=== PATIENT | female | born 1995 | race American Indian/Alaskan Native ===

== ENCOUNTER 2017-03-27 20:20 | Emergency (ER) | payer SELFPAY ==
[2017-03-27 21:00] VITALS: BP 115/66
[2017-03-27 21:25] LABS: Basophils % (Auto) 0.4 % (0.0-1.8); Eosinophils % (Auto) 0.4 % (0.0-4.3); Hematocrit 33.4 % (30.3-42.9); Hemoglobin 10.6 gm/dl (10.1-14.3); Mean Corpuscular HGB Conc 32 % (30-34); Mean Corpuscular Volume 79 fl (79-97); Platelet Count 232 K/mm3 (140-440); Red Blood Count 4.24 M/mm3 (3.65-5.03); Red Cell Distribution Width 15.8 % (13.2-15.2); White Blood Count 12.6 K/mm3 (4.5-11.0)
[2017-03-27 21:28] LABS: Mean Corpuscular Hemoglobin 25 pg (28-32)
[2017-03-27 22:03] LABS: Alanine Aminotransferase 7 units/L (7-56); Albumin 3.7 g/dL (3.9-5); Albumin/Globulin Ratio 1.3 %; Alkaline Phosphatase 44 units/L (35-129); Anion Gap 18 mmol/L; Blood Urea Nitrogen 7 mg/dL (7-17); Calcium 9.4 mg/dL (8.4-10.2); Carbon Dioxide 21 mmol/L (22-30); Chloride 104.5 mmol/L (98-107); Glucose 63 mg/dL (65-100); Lipase 39 units/L (13-60); Potassium 3.8 mmol/L (3.6-5.0); Sodium 140 mmol/L (137-145); Total Protein 6.5 g/dL (6.3-8.2)
--- NOTE | 2017-03-27 22:18 | Ultrasound Report ---
FINAL REPORT EXAM: US OB \T\gt; = 14 WEEKS FETUS HISTORY: Pelvic pain 18 weeks TECHNIQUE: Ultrasound obstetrical transabdominal PRIORS: None. FINDINGS: Single live intrauterine gestation identified. cardiac activity is present with heart rate of 149 beats per minute Amniotic fluid volume appears adequate. biometric measurements were obtained Biparietal diameter 19 weeks 2 days Head circumference 19 weeks 0 days Abdominal circumference 18 weeks 5 days Femur length 18 weeks 5 days Based on today's exam estimated gestational age is 19 weeks 0 days with estimated date of delivery August 21, 2017 Estimated weight today is 260 grams Cervical length is 3.7 centimeters Placenta is posterior and does not appear low lying IMPRESSION: Single live intrauterine gestation estimated at 19 weeks 0 days
--- NOTE | 2017-03-30 13:56 | ED Elopement Review ---
ED Pt Elopement review - Results review Lab results: Laboratory Tests 03/27/17 03/27/17 03/27/17 21:08 21:08 21:08 WBC 12.6 H RBC 4.24 Hgb 10.6 Hct 33.4 MCV 79 MCH 25 L MCHC 32 RDW 15.8 H Plt Count 232 Lymph % (Auto) 17.3 [place] % (Auto) 8.2 H Eos % (Auto) 0.4 Baso % (Auto) 0.4 Lymph # 2.2 [place]vier # 1.0 H Eos # 0.1 Baso # 0.0 Seg Neutrophils % 73.7 H Seg Neutrophils # 9.2 H Sodium 140 Potassium 3.8 Chloride 104.5 Carbon Dioxide 21 L Anion Gap 18 BUN 7 Creatinine 0.4 L Estimated GFR > 60 BUN/Creatinine Ratio 17.50 Glucose 63 L Calcium 9.4 Total Bilirubin 0.20 AST 15 ALT 7 Alkaline Phosphatase 44 Total Protein 6.5 Albumin 3.7 L Albumin/Globulin Ratio 1.3 Lipase 39 HCG, Quant 83678 H - Call Back decision Pt Call Back Decision: No action required
== END 2017-03-27 21:30 | disposition left against medical advice (07) ==
LOC: ED 20:20
DX: O26.892 Other specified pregnancy related conditions, second trimester (principal); R10.9 Unspecified abdominal pain; Z3A.18 18 weeks gestation of pregnancy; Z53.21 Procedure and treatment not carried out due to patient leaving prior to being seen by health care provider
CPT/HCPCS: 36415; 76805; 80053; 83690; 84702; 85025

== ENCOUNTER 2017-04-03 19:54 | Emergency (ER) | payer SELFPAY | END 2017-04-03 20:08 | disposition left against medical advice (07) | LOC: ED 19:54 | DX: O26.892 Other specified pregnancy related conditions, second trimester (principal); R10.9 Unspecified abdominal pain; Z3A.19 19 weeks gestation of pregnancy ==

== ENCOUNTER 2017-04-14 12:37 | Emergency (ER) | payer MEDICAID, OTHER ==
[2017-04-14 13:02] VITALS: BP 99/60
[2017-04-14 13:50] LABS: Basophils % (Auto) 0.4 % (0.0-1.8); Eosinophils % (Auto) 0.4 % (0.0-4.3); Hematocrit 34.4 % (30.3-42.9); Hemoglobin 10.8 gm/dl (10.1-14.3); Mean Corpuscular HGB Conc 32 % (30-34); Mean Corpuscular Volume 79 fl (79-97); Platelet Count 227 K/mm3 (140-440); Red Blood Count 4.37 M/mm3 (3.65-5.03); Red Cell Distribution Width 15.4 % (13.2-15.2); White Blood Count 15.7 K/mm3 (4.5-11.0)
[2017-04-14 13:58] LABS: Mean Corpuscular Hemoglobin 25 pg (28-32)
[2017-04-14 14:02] LABS: Anion Gap 15 mmol/L; Blood Urea Nitrogen 4 mg/dL (7-17); Calcium 9.3 mg/dL (8.4-10.2); Carbon Dioxide 22 mmol/L (22-30); Chloride 102.8 mmol/L (98-107); Glucose 76 mg/dL (65-100); Potassium 3.9 mmol/L (3.6-5.0); Sodium 136 mmol/L (137-145)
--- NOTE | 2017-04-15 10:38 | ED Elopement Review ---
ED Pt Elopement review - Results review Lab results: Laboratory Tests 04/14/17 04/14/17 04/14/17 13:20 13:20 15:16 WBC 15.7 H RBC 4.37 Hgb 10.8 Hct 34.4 MCV 79 MCH 25 L MCHC 32 RDW 15.4 H Plt Count 227 Lymph % (Auto) 11.5 L [place] % (Auto) 6.2 Eos % (Auto) 0.4 Baso % (Auto) 0.4 Lymph # 1.8 [place] # 1.0 H Eos # 0.1 Baso # 0.1 Seg Neutrophils % 81.5 H Seg Neutrophils # 12.8 H Sodium 136 L Potassium 3.9 Chloride 102.8 Carbon Dioxide 22 Anion Gap 15 BUN 4 L Creatinine 0.4 L Estimated GFR > 60 BUN/Creatinine Ratio 10.00 Glucose 76 Calcium 9.3 Troponin T < 0.010 < 0.010 - Call Back decision Pt Call Back Decision: Pt to F/U with PMD
== END 2017-04-14 16:11 | disposition left against medical advice (07) ==
LOC: ED 12:37
DX: R07.9 Chest pain, unspecified (principal); R42 Dizziness and giddiness; R10.9 Unspecified abdominal pain; Z53.21 Procedure and treatment not carried out due to patient leaving prior to being seen by health care provider
CPT/HCPCS: 36415; 80048; 84484; 85025; 93005; 93010

== ENCOUNTER 2017-05-04 00:33 | Outpatient (CLI) | payer MEDICAID ==
[2017-05-04 01:17] VITALS: BP 109/53
[2017-05-04] MEDS ORDERED: LACTATED RINGERS 1,000 ML IV ONE (01:28)
[2017-05-04 02:23] LABS: Bacteria,Urine 1+ /HPF (Negative); Bilirubin,Urine NEG (Negative); Blood,Urine NEG (Negative); Ketones,Urine NEG (Negative); Leukocyte Esterase,Urine LG (Negative); Mucus,Urine 1+ /HPF; Nitrite,Urine NEG (Negative); Protein,Urine <15 mg/dL mg/dL (Negative); Urobilinogen,Urine < 2.0 mg/dL (<2.0)
== END 2017-05-04 02:15 | disposition home or self-care (01) ==
LOC: TRG 00:33
PROVIDERS: ATTEND Obstetrics & Gynecology
DX: O47.02 False labor before 37 completed weeks of gestation, second trimester (principal); Z3A.24 24 weeks gestation of pregnancy
CPT/HCPCS: 81001

== ENCOUNTER 2018-10-25 | Emergency (ER) | payer MEDICAID ==
[2018-10-25 00:35] LABS: Bilirubin,Urine NEG (Negative); Blood,Urine NEG (Negative); Color,Urine Yellow (Yellow); Mucus,Urine FEW /HPF
[2018-10-25 00:36] LABS: HCG Qualitative,Urine Negative (Negative)
--- NOTE | 2018-10-25 00:49 | Emergency Department Report ---
ED Female HPI - General Chief complaint: Urogenital-Female Stated complaint: VAGINAL DISCOMFORT Time Seen by Provider: 10/25/18 00:40 Source: patient, family Mode of arrival: Ambulatory Limitations: No Limitations - History of Present Illness Initial comments: This is a 23-year-old female here report that she is having burning on urination, odor to urine, odor to the vaginal area started 3 days ago. She says she is clear to white discharge. Denies any itching. She does have concern for STD. Patient states she recently had an and she had complete STD check in August and everything was normal and then she started having sex again with her now boyfriend was in the room and this started happening. He does not have any symptoms at present. She reports some pelvic cramping at 7 out of 10 on and off. Pain is crampy located to milk pelvic area and no alleviating or exacerbating factors. She did not take any pain medication per patient. Denies any vaginal bleeding. Last menstrual period was 10/10/2018. Denies any back pain, nausea vomiting, fever or chills, shortness of breath or chest pain. MD Complaint: vaginal discharge, dysuria, pelvic pain, possible STD Onset/Timin -: days(s) Location: suprapubic Radiation: non-radiating Severity: severe Severity scale (0 -10): 7 Quality: cramping Consistency: intermittent Improves with: none Worsens with: none Are you Now?: No Last Menstrual Period: 10/10/18 EDC: 07/17/19 Associated Symptoms: vaginal discharge, abdominal pain, dysuria. denies: vaginal bleeding, nausea/vomiting, fever/chills, headaches, loss of appetite, hematuria, rash, seizure, shortness of breath, syncope, weakness - Related Data Sexually active: Yes Previous Rx's Medication Instructions Recorded Last Taken Type Naproxen [Naprosyn TAB] 500 mg PO BID #30 tablet 11/06/14 Unknown Rx cephALEXin [Keflex] 500 mg PO Q12H 7 Days #14 cap 10/25/18 Unknown Rx metroNIDAZOLE [Flagyl] 500 mg PO Q12HR 7 Days #14 tab 10/25/18 Unknown Rx Allergies Allergy/AdvReac Type Severity Reaction Status Date / Time No Known Allergies Allergy Verified 05/04/17 01:31 ED Review of Systems ROS: Stated complaint: VAGINAL DISCOMFORT Other details as noted in HPI Constitutional: denies: chills, fever Eyes: denies: eye pain, eye discharge ENT: denies: ear pain, throat pain, congestion Respiratory: denies: cough, shortness of breath, wheezing Cardiovascular: denies: chest pain, palpitations, dyspnea on exertion, edema, syncope Gastrointestinal: abdominal pain. denies: nausea, vomiting, diarrhea, constipation, hematemesis, hematochezia Genitourinary: dysuria, discharge. denies: urgency, frequency, hematuria, abnormal menses, dyspareunia Musculoskeletal: denies: back pain, joint swelling, arthralgia, myalgia Neurological: denies: headache Psychiatric: denies: anxiety ED Past Medical Hx - Past Medical History Previous Medical History?: No Hx Hypertension: No Hx Diabetes: No Hx Deep Vein Thrombosis: No Hx Renal Disease: No Hx Sickle Cell Disease: No Hx Seizures: No Hx Asthma: No Hx HIV: No - Surgical History Past Surgical History?: No - Family History Family history: hypertension - Social History Smoking Status: Never Smoker Substance Use Type: None - Medications Home Medications: Home Medications Medication Instructions Recorded Confirmed Last Taken Type Naproxen [Naprosyn TAB] 500 mg PO BID #30 tablet 11/06/14 Unknown Rx cephALEXin [Keflex] 500 mg PO Q12H 7 Days #14 cap 10/25/18 Unknown Rx metroNIDAZOLE [Flagyl] 500 mg PO Q12HR 7 Days #14 tab 10/25/18 Unknown Rx ED Physical Exam - General Limitations: No Limitations General appearance: alert, in no apparent distress - Head Head exam: Present: atraumatic, normocephalic, normal inspection - Eye Eye exam: Present: normal appearance, PERRL, EOMI Pupils: Present: normal accommodation - ENT ENT exam: Present: normal exam, normal orophraynx, mucous membranes moist, TM's normal bilaterally, normal external ear exam - Neck Neck exam: Present: normal inspection, full ROM, other (no C-spine tenderness). Absent: tenderness, meningismus, lymphadenopathy - Respiratory Respiratory exam: Present: normal lung sounds bilaterally. Absent: respiratory distress, chest wall tenderness - Cardiovascular Cardiovascular Exam: Present: regular rate, normal rhythm, normal heart sounds. Absent: systolic murmur, diastolic murmur - GI/Abdominal GI/Abdominal exam: Present: soft, normal bowel sounds. Absent: distended, tenderness, guarding, rebound, rigid, organomegaly - External exam: Absent: erythema, swelling, lesions, lacerations, ecchymosis, bleeding Speculum exam: Present: vaginal discharge, cervical discharge, other (patient has erosive cervicitis.). Absent: erythema, vaginal bleeding, foreign body, tissue, laceration Bi-manual exam: Present: normal bi-manual exam. Absent: cervical motion tendernes, adnexal tenderness, adnexal mass, uterine enlargement, uterine tenderness - Expanded Exam Expanded Female exam: Absent: vaginal laceration, tissue present in vagina, herpetic lesions, vulvar erythema, vulvar tenderness, foreign body Speculum exam: Present: cervical OS closed, vaginal discharge. Absent: vaginal bleeding - Extremities Exam Extremities exam: Present: normal inspection, full ROM, normal capillary refill, other (No cce. + 2 pulses in all extremities, no neurovascular compromise). Absent: tenderness, pedal edema, joint swelling, calf tenderness - Back Exam Back exam: Present: normal inspection, full ROM, other (ambulates without any difficulties). Absent: tenderness, CVA tenderness (R), CVA tenderness (L), muscle spasm, paraspinal tenderness, vertebral tenderness, rash noted - Neurological Exam Neurological exam: Present: alert, oriented X3, normal gait, reflexes normal. Absent: motor sensory deficit - Psychiatric Psychiatric exam: Present: normal affect, normal mood - Skin Skin exam: Present: warm, dry, intact, normal color. Absent: rash ED Course Vital Signs 10/25/18 00:01 Temperature 97.9 F Pulse Rate 87 Respiratory 18 Rate Blood Pressure 118/57 [Right] O2 Sat by Pulse 100 Oximetry - Reevaluation(s) Reevaluation #1: 10/25/18 04:05 Patient given Rocephin 250 mg IM and zithromax 1 gram to cover CHL. She was started on Keflex 500 mg to cover urinary tract infection. Patient will be started on Flagyl upon discharge for bacterial vaginosis. Wet prep negative for yeast and Trichomonas positive for BV with many polymorphonuclear cell. Gonorrhea and Chlamydia still pending and urine cultures pending ED Medical Decision Making - Lab Data Lab Results 10/24/18 10/25/18 Range/Units Unknown Unknown Urine Color Yellow (Yellow) Urine Turbidity Clear (Clear) Urine pH 5.0 (5.0-7.0) Ur Specific [place] 1.024 (1.003-1.030) Urine Protein 30 mg/dl (Negative) mg/dL Urine Glucose (UA) Neg (Negative) mg/dL Urine Ketones Tr (Negative) mg/dL Urine Blood Neg (Negative) Urine Nitrite Neg (Negative) Urine Bilirubin Neg (Negative) Urine Urobilinogen 4.0 (<2.0) mg/dL Ur Leukocyte Esterase Sm (Negative) Urine WBC (Auto) 31.0 H (0.0-6.0) /HPF Urine RBC (Auto) 3.0 (0.0-6.0) /HPF U Epithel Cells (Auto) 1.0 (0-13.0) /HPF Urine Mucus Few /HPF Urine HCG, Qual Negative (Negative) Urine culture sent, Gonorrhea and chlamydia pending Wet prep positive for BV, negative trichomoniasis and negative yeast. Showing many polymorphonuclear cell - Medical Decision Making This is a 23-year-old female here to be checked for STD due to possible exposure with vaginal discharge and also urinary burning discomfort going on for 3 days. Patient pelvic exam shows discharge and vaginal thought and cervix with erosive cervix. She also has urinary tract infection and wet prep shows that she has bacterial vaginosis. I discussed diagnosis after lab results the patient and she voiced understanding. She wanted to be treated for gonorrhea and chlamydia and emergency room and she was treated with Rocephin 250 mg IM, Zithromax 1 g by mouth. Started on Keflex 500 mg for UTI and discharged home in stable condition with her friend with prescription for Flagyl and Keflex and follow-up with her primary care doctor, [facility] or [facility] in one week for urinalysis and STD testing. She voiced understanding and discharged home in stable condition. No pain at present. Critical care attestation.: If time is entered above; I have spent that time in minutes in the direct care of this critically ill patient, excluding procedure time. ED Disposition Clinical Impression: Concern about STD in female without diagnosis, Bacterial vaginosis, Pelvic cramping, Vaginal discharge UTI (urinary tract infection) Qualifiers: Urinary tract infection type: acute cystitis Hematuria presence: without hematuria Qualified Code(s): N30.00 - Acute cystitis without hematuria Disposition: TO HOME OR SELFCARE Is pt being admited?: No Does the pt Need Aspirin: No Condition: Stable Instructions: Bacterial Vaginosis (ED), Dysuria (ED), Urinary Tract Infection in Women (ED), Abdominal Pain (ED) Additional Instructions: Please follow-up with your primary care physician or [facility], [facility], held department for STD recheck in 7 days. Take antibiotic as prescribed but please do not drink alcohol with Flagyl as this medication can cause severe nausea and vomiting Refrain from having sexual activity for the next 2 weeks Have your partner checked for STD at the health department Take Keflex for urinary tract infection You can also return to the records department on 10/30/2018 to have your gonorrhea and chlamydia test. Referrals: [facility] [Outside] - 10/27/18 SHAHBAZ PICKETT MD [Primary Care Provider] - 10/27/18 [facility] [Outside] - 10/27/18 Forms: STI Treatment and Prevention, Work/School Release Form(ED)
[2018-10-25 01:05] VITALS: BP 118/57
[2018-10-25] MEDS ORDERED: KEFLEX PO ONE (03:45)
[2018-10-25] MEDS ORDERED: ZITHROMAX PO ONE (03:45)
[2018-10-25] MEDS ORDERED: XYLOCAINE 1% MPF 5 mL INFILTRATI ONE (03:45)
[2018-10-25] MEDS ORDERED: ROCEPHIN IM ONE (03:45)
== END 2018-10-25 04:57 | disposition home or self-care (01) ==
LOC: ED
DX: N76.0 Acute vaginitis (principal); N39.0 Urinary tract infection, site not specified
CPT/HCPCS: 81001; 81025; 87076; 87086; 87186; 87210; 87591; 96372; 99284; J0696

== ENCOUNTER 2019-01-21 23:22 | Emergency (ER) | payer MEDICAID ==
--- NOTE | 2019-01-22 01:09 | Emergency Department Report ---
ED Female HPI - General Chief complaint: Urogenital-Female Stated complaint: POSS UTI Time Seen by Provider: 01/22/19 01:06 Source: patient Mode of arrival: Ambulatory Limitations: No Limitations - History of Present Illness Initial comments: Patient is a 23-year-old female that presents to emergency with complaints of dysuria. 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 Patient's states that she waited a few days because she thought it might get better on its own but states that the symptoms are still there. Patient states symptoms are about the same. Patient denies back pain. Patient denies abdominal pain. Patient denies vaginal discharge. Patient denies pelvic pain. The patient denies the possibility of .. MD Complaint: dysuria -: Sudden Consistency: intermittent Worsens with: urination Are you Now?: No Associated Symptoms: dysuria, hematuria. denies: vaginal discharge, vaginal bleeding, abdominal pain, nausea/vomiting, fever/chills, headaches, loss of appetite, rash, seizure, shortness of breath, syncope, weakness - Related Data Sexually active: Yes : 4 Para: 4 A: 0 Previous Rx's Medication Instructions Recorded Last Taken Type Naproxen [Naprosyn TAB] 500 mg PO BID #30 tablet 11/06/14 Unknown Rx cephALEXin [Keflex] 500 mg PO Q12H 7 Days #14 cap 10/25/18 Unknown Rx metroNIDAZOLE [Flagyl] 500 mg PO Q12HR 7 Days #14 tab 10/25/18 Unknown Rx Sulfamethoxazole/Trimethoprim 1 each PO BID 10 Days #20 tablet 01/22/19 Unknown Rx [Bactrim Ds Tablet] Allergies Allergy/AdvReac Type Severity Reaction Status Date / Time No Known Allergies Allergy Verified 05/04/17 01:31 ED Review of Systems ROS: Stated complaint: POSS UTI Other details as noted in HPI Constitutional: denies: chills, fever Eyes: denies: eye pain, eye discharge, vision change ENT: denies: ear pain, throat pain Respiratory: denies: cough, shortness of breath, wheezing Cardiovascular: denies: chest pain, palpitations Endocrine: no symptoms reported Gastrointestinal: denies: abdominal pain, nausea, diarrhea Genitourinary: urgency, dysuria, hematuria. denies: discharge Musculoskeletal: denies: back pain, joint swelling, arthralgia Skin: denies: rash, lesions Neurological: denies: headache, weakness, paresthesias Psychiatric: denies: anxiety, depression Hematological/Lymphatic: denies: easy bleeding, easy bruising ED Past Medical Hx - Past Medical History Previous Medical History?: Yes Hx Hypertension: No Hx Diabetes: No Hx Deep Vein Thrombosis: No Hx Renal Disease: No Hx Sickle Cell Disease: No Hx Seizures: No Hx Asthma: No Hx HIV: No - Surgical History Past Surgical History?: No - Family History Family history: no significant - Social History Smoking Status: Never Smoker Substance Use Type: None - Medications Home Medications: Home Medications Medication Instructions Recorded Confirmed Last Taken Type Naproxen [Naprosyn TAB] 500 mg PO BID #30 tablet 11/06/14 Unknown Rx cephALEXin [Keflex] 500 mg PO Q12H 7 Days #14 cap 10/25/18 Unknown Rx metroNIDAZOLE [Flagyl] 500 mg PO Q12HR 7 Days #14 tab 10/25/18 Unknown Rx Sulfamethoxazole/Trimethoprim 1 each PO BID 10 Days #20 tablet 01/22/19 Unknown Rx [Bactrim Ds Tablet] ED Physical Exam - General Limitations: No Limitations General appearance: alert, in no apparent distress - Head Head exam: Present: atraumatic, normocephalic - Eye Eye exam: Present: normal appearance - ENT ENT exam: Present: mucous membranes moist - Neck Neck exam: Present: normal inspection - Respiratory Respiratory exam: Present: normal lung sounds bilaterally. Absent: respiratory distress - Cardiovascular Cardiovascular Exam: Present: regular rate, normal rhythm. Absent: systolic murmur, diastolic murmur, rubs, gallop - GI/Abdominal GI/Abdominal exam: Present: soft, normal bowel sounds. Absent: distended, tenderness, guarding - Rectal Rectal exam: Present: deferred - Extremities Exam Extremities exam: Present: normal inspection - Back Exam Back exam: Present: normal inspection, full ROM. Absent: tenderness, CVA t enderness (R), CVA tenderness (L) - Neurological Exam Neurological exam: Present: alert, oriented X3 - Psychiatric Psychiatric exam: Present: normal affect, normal mood - Skin Skin exam: Present: warm, dry, intact, normal color. Absent: rash ED Course Vital Signs 01/21/19 23:50 Temperature 97.5 F L Pulse Rate 74 Respiratory 16 Rate Blood Pressure 111/69 O2 Sat by Pulse 100 Oximetry - Reevaluation(s) Reevaluation #1: Discussed all results patient. Patient is stable for discharge. Patient plan of care. Patient will be given Rocephin prior to discharge. Patient given d ischarge instructions. Patient given medication instructions. Patient voiced understanding of all instructions. 01/22/19 01:19 ED Medical Decision Making - Medical Decision Making Patient is a 23-year-old female that presents to [facility] with complaints of dysuria. Patient found to have UTI. Patient is stable for discharge. Patient given discharge instructions. Patient will be given a dose of Rocephin prior to discharge. Patient's negative. Patient given discharge instructions. - Differential Diagnosis dysuria. UTI. Hematuria. Critical care attestation.: If time is entered above; I have spent that time in minutes in the direct care of this critically ill patient, excluding procedure time. ED Disposition Clinical Impression: Dysuria UTI (urinary tract infection) Qualifiers: Urinary tract infection type: acute cystitis Hematuria presence: with hematuria Qualified Code(s): N30.01 - Acute cystitis with hematuria Disposition: TO HOME OR SELFCARE Is pt being admited?: No Does the pt Need Aspirin: No Condition: Stable Instructions: Urinary Tract Infection in Women (ED), Dysuria (ED) Additional Instructions: Patient to follow up with primary care in 2-3 days. Patient to return to the ER if condition worsens. Patient to take meds as directed. Patient to increase water. Patient to rest. Patient to take Tylenol or ibuprofen when necessary for pain. Prescriptions: Sulfamethoxazole/Trimethoprim [Bactrim Ds Tablet] 1 each PO BID 10 Days #20 tablet Referrals: CARLOS CALLAWAY MD [Primary Care Provider] - 2-3 Days Time of Disposition: 01:25
[2019-01-22 01:10] LABS: HCG Qualitative,Urine Negative (Negative)
[2019-01-22] MEDS ORDERED: ROCEPHIN IM ONE (01:16)
[2019-01-22] MEDS ORDERED: XYLOCAINE 1% MPF 5 mL INFILTRATI ONE (01:16)
[2019-01-22 01:21] LABS: Color,Urine Yellow (Yellow)
[2019-01-22 01:22] LABS: Bilirubin,Urine Negative (Negative); Blood,Urine Large (Negative); RBC,Urine > 182.0 /HPF (0.0-6.0); WBC,Urine > 182.0 /HPF (0.0-6.0)
[2019-01-23 18:03] VITALS: BP 111/69
== END 2019-01-22 02:38 | disposition home or self-care (01) ==
LOC: ED 23:22
DX: N39.0 Urinary tract infection, site not specified (principal)
CPT/HCPCS: 81001; 81025; 96372; 99283; J0696

== ENCOUNTER 2019-01-24 16:37 | Emergency (ER) | payer MEDICAID, OTHER ==
[2019-01-24 16:44] VITALS: BP 133/78
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
[2019-01-24 17:39] LABS: HCG Qualitative,Urine Negative (Negative)
[2019-01-24 17:45] LABS: Bilirubin,Urine NEG (Negative); Blood,Urine NEG (Negative); Color,Urine Yellow (Yellow); Mucus,Urine FEW /HPF; Protein,Urine <15 mg/dL mg/dL (Negative); Urobilinogen,Urine < 2.0 mg/dL (<2.0)
[2019-01-24] MEDS ORDERED: FLEXERIL PO ONE (18:01)
[2019-01-24] MEDS ORDERED: NORCO 5/325 PO ONE (18:01)
[2019-01-24] MEDS ORDERED: IBUPROFEN PO ONE (18:01)
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
== END 2019-01-24 19:05 | disposition home or self-care (01) ==
LOC: ED 16:37
DX: M79.18 Myalgia, other site (principal); M54.9 Dorsalgia, unspecified; V49.49XA Driver injured in collision with other motor vehicles in traffic accident, initial encounter; Y93.89 Activity, other specified; Y92.89 Other specified places as the place of occurrence of the external cause; Y99.8 Other external cause status
CPT/HCPCS: 72100; 81001; 81025

== ENCOUNTER 2019-05-10 20:17 | Emergency (ER) | payer OTHER, MEDICAID ==
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
[2019-05-10 20:26] VITALS: BP 124/76
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
[2019-05-10] MEDS ORDERED: IBUPROFEN PO ONE (21:28)
[2019-05-10] MEDS ORDERED: TYLENOL PO ONE (21:28)
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
== END 2019-05-10 22:08 | disposition home or self-care (01) ==
LOC: ED 20:17
DX: S63.501A Unspecified sprain of right wrist, initial encounter (principal); S43.402A Unspecified sprain of left shoulder joint, initial encounter; M62.830 Muscle spasm of back; Z79.899 Other long term (current) drug therapy; V49.49XA Driver injured in collision with other motor vehicles in traffic accident, initial encounter; Y93.89 Activity, other specified; Y92.410 Unspecified street and highway as the place of occurrence of the external cause; Y99.8 Other external cause status
CPT/HCPCS: 72100

== ENCOUNTER 2022-02-05 02:13 | Outpatient (CLI) | payer MEDICAID ==
[2022-02-05 04:16] VITALS: BP 109/56
--- NOTE | 2022-02-05 05:48 | Ultrasound Report ---
ULTRASOUND OBSTETRIC INDICATION: Contractions. Clinical Gestational Age (GA): 37.1 weeks TECHNIQUE: Transabdominal. COMPARISON: No relevant prior imaging study available. FINDINGS: There is a single intrauterine . Biparietal Diameter = 8.97 cm = 36 weeks, 2 day(s). Head Circumference = 30.0 cm = 33 weeks, 2 day(s). Abdominal Circumference = 32.74 cm = 36 weeks, 5 day(s). Femur Length = 7.59 cm = 38 weeks, 3 day(s). Average Ultrasound Age (AUA) = 36 weeks, 2 day(s). Heart Rate: 124 beats per minute. Estimated Weight in grams (if calculated): 3023 Estimated Weight Growth Percentile (if calculated): 46 Position: cephalic. Cervix: closed. Length in cm (if measured): 3.97 Placenta: anterior and free of the os. Amniotic Fluid Volume: normal Amniotic Fluid Index (MADDIE) in cm (if calculated): 6.9. Maternal Adnexa: No significant abnormality. IMPRESSION: 1. Single, living intrauterine with estimated sonographic age of 36 weeks, 2 day(s). 2. No significant sonographic abnormality. Signer Name: Rolan Quezada MD Signed: 02/05/2022 5:44 AM Workstation Name: [id number]
== END 2022-02-05 05:13 | disposition home or self-care (01) ==
LOC: TRG 02:13 → APU 02:14 → TRG 05:13
PROVIDERS: ATTEND Obstetrics & Gynecology Gynecology
DX: Z34.93 Encounter for supervision of normal pregnancy, unspecified, third trimester (principal); Z3A.37 37 weeks gestation of pregnancy
CPT/HCPCS: 59025; 76816